=== PATIENT | female | born 1935 | race Caucasian/White ===

== ENCOUNTER → 2023-04-17 10:26 | Outpatient (REF) | payer MEDICARE, BC, SELFPAY ==
[2023-04-17 11:21] LABS: % Basophils 0.4 % (0-2); % Eosinophils 4.5 % (0-6); % Immature Granulocytes 0.3 % (0-0.5); % Lymphocytes 31.2 % (20.5-51.1); % Monocytes 7.5 % (1.7-9.3); % Neutrophils 56.1 % (42.2-75.2); Absolute Eosinophils 0.4 10^3/uL (0-0.7); Absolute Monocytes 0.7 10^3/uL (0.1-0.6); Absolute Neutrophils 5.4 10^3/uL (1.4-6.5); Hemoglobin 13.1 g/dL (12.0-16.0); Mean Corp Hgb Conc. 34.5 g/dL (33.0-37.0); Mean Corpuscular Hgb 29.6 pg (27.0-31.0); Mean Platelet Volume 10.6 fL (7.4-10.4); Nucleated Red Blood Cells % 0 %; Platelet Count 300 10^3/uL (130-400); Red Blood Cell Count 4.42 10^6/uL (4.20-5.40); Red Cell Dist. Width 13.6 % (11.5-14.5); White Blood Cell Count 9.5 10^3/uL (4.8-10.8)
[2023-04-17 12:42] LABS: Iron 82 ug/dl (37-170); LDH 237 U/L (120-246)
[2023-04-17 12:52] LABS: Percent Saturation 24 % (20-50); Total Iron Binding Capacity 330 ug/dl (265-497)
[2023-04-17 13:25] LABS: Ferritin 64.1 ng/ml (11.1-264.0)
== END ==
LOC: REG 10:26
PROVIDERS: ATTENDING PHYSICIAN Internal Medicine Hematology & Oncology; FAMILY PHYSICIAN Family Medicine
DX: C85.80 Other specified types of non-Hodgkin lymphoma, unspecified site (principal)
CPT/HCPCS: 36415; 82728; 83540; 83550; 83615; 85025

== ENCOUNTER 2024-02-08 15:39 | Inpatient (IN) | payer MEDICARE, BC, SELFPAY ==
[2024-02-08 12:03] VITALS: BP 118/84
[2024-02-08 12:22] LABS: % Basophils 0.2 % (0-2); % Eosinophils 0.1 % (0-6); % Immature Granulocytes 0.4 % (0-0.5); % Lymphocytes 11.9 % (20.5-51.1); % Monocytes 6.7 % (1.7-9.3); % Neutrophils 80.7 % (42.2-75.2); Absolute Immature Granulocytes 0.1 10^3/uL (0-0.05); Absolute Monocytes 1.1 10^3/uL (0.1-0.6); Absolute Neutrophils 13.4 10^3/uL (1.4-6.5); Hematocrit 35.3 % (37.0-47.0); Mean Corpuscular Hgb 29.1 pg (27.0-31.0); Mean Corpuscular Volume 85.5 fL (81.0-99.0); Mean Platelet Volume 10.3 fL (7.4-10.4); Nucleated Red Blood Cells % 0 %; Platelet Count 415 10^3/uL (130-400); Red Blood Cell Count 4.13 10^6/uL (4.20-5.40); White Blood Cell Count 16.5 10^3/uL (4.8-10.8)
[2024-02-08 12:38] LABS: ALT (SGPT) 16 U/L (0-35); AST (SGOT) 23 U/L (14-36); Albumin 4.1 g/dl (3.5-5.0); Alkaline Phosphatase 97 U/L (38-126); Blood Urea Nitrogen 23 mg/dl (7-17); Calcium 9.7 mg/dl (8.4-10.2); Carbon Dioxide 26 mmol/L (22-30); Chloride 96 mmol/L (98-107); Glucose 134 mg/dl (70-99); Potassium 3.8 mmol/L (3.5-5.1); Sodium 137 mmol/L (135-145); Total Bilirubin 1.3 mg/dl (0.2-1.3); Total Protein 7.3 g/dl (6.3-8.2); eGFR > 60.00
--- NOTE | 2024-02-08 12:49 | EDRN ---
Mary Beth ORO currently at the pts bedside
--- NOTE | 2024-02-08 13:02 | ED.GENMED ---
History of Present Illness
<Jen House PA-C - Last Filed: 02/08/24 19:34>
General
Chief Complaint: Facial Problem
Source: patient
Exam Limitations: none
Time Seen by Provider: 02/08/24 12:34
Nursing documentation reviewed up to this point in time: agreed with
History of Present Illness
History of Present Illness:
88-year-old female with history hypertension, hyperlipidemia presenting to the emergency department for evaluation of left-sided facial swelling. Patient states symptoms started 2 days ago and have been gradually worsening. She does have an area
of tenderness on the left mandible although she also feels that her left cheek is somewhat tingly/numb. Patient states starting today she is having very mild difficulty with swallowing. Patient denies any known fevers. No chest pain, shortness of
breath, drooling.
Patient was seen by an urgent care dentist where they performed dental x-rays and did not see any evidence of tooth infection. However�they did start her on a course of metronidazole and recommend she be seen in the emergency department.
Of note�patient did have a tooth extraction and the middle of December complicated by dental abscess which was drained at the end of December.
Past History
<Jen House PA-C - Last Filed: 02/08/24 19:34>
Past History
ED Past Medical History: HTN and Other (bladder issues)
ED Past Surgical History: Orthopedic (Back surgeries, hip replacement)
Social History
Tobacco: Non-smoker
Personal:
Living: with family
Review of Systems
<LV Broderick Last Filed: 02/08/24 19:34>
Review of Systems
Allergies reviewed?: Yes
All Other Systems: ROS reviewed and negative except as documented in HPI and ROS
Phy Exam
<Jen House PA-C - Last Filed: 02/08/24 19:34>
Physical Exam
Physical Exam:
Vitals: Patient's vital signs are stable. Afebrile
General: Patient is well appearing, no acute distress. Nontoxic appearing
Skin: Erythema and swelling of left lower cheek/mandible with streaking extending into left submandibular space
Head: Normocephalic, atraumatic
Eyes: Sclera nonicteric. EOMs intact. No nystagmus.
Throat: Protecting airway. No trismus. No drooling. Trachea midline.
Neck: Normal ROM, no cervical spine tenderness, no meningismus.
Cardiac: Regular rate and rhythm, no murmurs.
Pulm: Normal respiratory effort, no wheezes, rales, rhonchi heard on exam.
Abdomen: No abdominal tenderness.
Extremities: No evidence of cyanosis or edema
Neuro: AAOx3. CN II-XII intact. No focal neurologic deficits.
Psychiatric: Normal affect.
Course
<Jen House PA-C - Last Filed: 02/08/24 19:34>
Orders/Labs/Results
Orders:
Orders
02/08/24 Breakfast
Cholesterol Lowering
At Your Request: Limited Participation
Cholesterol Lowering: Sodium, 2 Gram
IDDSI 6 - Small Bite/Soft
02/08/24 12:13
CMP [Comprehensive Metabolic Panel] Urgent
Complete Blood Count/With Diff Urgent
02/08/24 12:[address] w [address] [CT Facial Bones W/ Iv Contrast] Urgent
Comment:
Reason For Exam: Left jaw swelling
0.9% Sodium Chloride 1000 ml [Nss] 1,000 ml IV BOLUS
02/08/24 15:28
Ampicillin/Sulbactam 3 G [Unasyn] 3 gm 0.9% Sodium Chloride 100 ml [Nss] 100 ml IV NOW
02/08/24 15:29
Admit/Transfer Patient As Directed
Co-Sign Provider:
Level of Care: Inpatient admission
Assign to:: Medical/Surgical
Physician / Group: zina be
Diagnosis: abscess
Reason for Hospitalization: abscess
Expected length of stay greater than two midnights?: Yes
ELOS- Estimated Length of Stay in days: 3
I certify the patient meets the requirements for IP care: Yes
PRN Pain Medication Management As Directed
May give lesser potent ordered pain med per pt: Yes
preference::
Protocol:: Medication orders for pain may be administered in a
manner that supports deferring to patient preference
when the pt is:
- Requesting an ordered lesser potent pain medication.
Least to most potent pain medications are defined
as: acetaminophen < NSAID < tramadol < opioids
(morphine, oxycodone, hydromorphone).
- Requesting a lesser dose of the same medication IF
ORDERED.
- Requesting a less intrusive route of administration
if both routes are prescribed by the provider (PO <
IV).
02/08/24 15:30
Code Status As Directed
Resuscitation Status: Full Code
02/08/24 16:49
Acetaminophen [Tylenol] 650 mg PO Q4HPRN PRN
02/08/24 16:49
Activity As Directed
Activity Level: Out of Bed-Early Mobility
Intake/ Output As Directed
Frequency: Per unit guidelines
Venous Foot Pumps As Directed
Location: Bilateral feet
Vital Signs As Directed
Frequency: Per unit guidelines
DX Deep Vein Thrombosis Video Routine
02/08/24 20:00
Tolterodine Tartrate [Detrol] 1 mg PO BID
02/08/24 22:00
Ampicillin/Sulbactam 3 G [Unasyn] 3 gm 0.9% Sodium Chloride 100 ml [Nss] 100 ml IV Q6H
02/09/24 06:00
Complete Blood Count/No Diff IN AM
02/09/24 08:00
Amlodipine [Norvasc] 10 mg PO DAILY
Pantoprazole [Protonix] 40 mg PO DAILY
02/10/24 06:00
Complete Blood Count/No Diff IN AM
02/11/24 06:00
Complete Blood Count/No Diff IN AM
02/12/24 06:00
Complete Blood Count/No Diff IN AM
Abnormal Lab Results
02/08/24
12:13
WBC 16.5 H 10^3/uL
(4.8-10.8)
RBC 4.13 L 10^6/uL
(4.20-5.40)
Hct 35.3 L %
(37.0-47.0)
Plt Count 415 H 10^3/uL
(130-400)
Abs Immat Gran (auto) 0.1 H 10^3/uL
(0-0.05)
Absolute Neuts (auto) 13.4 H 10^3/uL
(1.4-6.5)
Absolute Monos (auto) 1.1 H 10^3/uL
(0.1-0.6)
Neutrophils % 80.7 H %
(42.2-75.2)
Lymphocytes % 11.9 L %
(20.5-51.1)
Chloride 96 L mmol/L
(98-107)
BUN 23 H mg/dl
(7-17)
Glucose 134 H mg/dl
(70-99)
02/08/24 12:13
02/08/24 12:13
Vital Signs
Initial and Last Documented VS:
Initial Vital Signs
Temp Pulse Resp BP Pulse Ox
99.0 F 108 18 118/84 95
02/08/24 12:03 02/08/24 12:03 02/08/24 12:03 02/08/24 12:03 02/08/24 12:03
Last Documented Vital Signs
Temp Pulse Resp BP Pulse Ox
97.7 F 110 18 154/85 95
02/08/24 17:20 02/08/24 17:20 02/08/24 17:20 02/08/24 17:20 02/08/24 17:20
<Myesha Benson MD - Last Filed: 02/08/24 13:04>
Orders/Labs/Results
Orders:
Orders
02/08/24 Breakfast
Cholesterol Lowering
At Your Request: Limited Participation
Cholesterol Lowering: Sodium, 2 Gram
IDDSI 6 - Small Bite/Soft
02/08/24 12:13
CMP [Comprehensive Metabolic Panel] Urgent
Complete Blood Count/With Diff Urgent
02/08/24 12:[address] w [address] [CT Facial Bones W/ Iv Contrast] Urgent
Comment:
Reason For Exam: Left jaw swelling
0.9% Sodium Chloride 1000 ml [Nss] 1,000 ml IV BOLUS
02/08/24 15:28
Ampicillin/Sulbactam 3 G [Unasyn] 3 gm 0.9% Sodium Chloride 100 ml [Nss] 100 ml IV NOW
02/08/24 15:29
Admit/Transfer Patient As Directed
Co-Sign Provider:
Level of Care: Inpatient admission
Assign to:: Medical/Surgical
Physician / Group: zina be
Diagnosis: abscess
Reason for Hospitalization: abscess
Expected length of stay greater than two midnights?: Yes
ELOS- Estimated Length of Stay in days: 3
I certify the patient meets the requirements for IP care: Yes
PRN Pain Medication Management As Directed
May give lesser potent ordered pain med per pt: Yes
preference::
Protocol:: Medication orders for pain may be administered in a
manner that supports deferring to patient preference
when the pt is:
- Requesting an ordered lesser potent pain medication.
Least to most potent pain medications are defined
as: acetaminophen < NSAID < tramadol < opioids
(morphine, oxycodone, hydromorphone).
- Requesting a lesser dose of the same medication IF
ORDERED.
- Requesting a less intrusive route of administration
if both routes are prescribed by the provider (PO <
IV).
02/08/24 15:30
Code Status As Directed
Resuscitation Status: Full Code
02/08/24 16:49
Acetaminophen [Tylenol] 650 mg PO Q4HPRN PRN
02/08/24 16:49
Activity As Directed
Activity Level: Out of Bed-Early Mobility
Intake/ Output As Directed
Frequency: Per unit guidelines
Venous Foot Pumps As Directed
Location: Bilateral feet
Vital Signs As Directed
Frequency: Per unit guidelines
DX Deep Vein Thrombosis Video Routine
02/08/24 20:00
Tolterodine Tartrate [Detrol] 1 mg PO BID
02/08/24 22:00
Ampicillin/Sulbactam 3 G [Unasyn] 3 gm 0.9% Sodium Chloride 100 ml [Nss] 100 ml IV Q6H
02/09/24 06:00
Complete Blood Count/No Diff IN AM
02/09/24 08:00
Amlodipine [Norvasc] 10 mg PO DAILY
Pantoprazole [Protonix] 40 mg PO DAILY
02/10/24 06:00
Complete Blood Count/No Diff IN AM
02/11/24 06:00
Complete Blood Count/No Diff IN AM
02/12/24 06:00
Complete Blood Count/No Diff IN AM
Abnormal Lab Results
02/08/24
12:13
WBC 16.5 H 10^3/uL
(4.8-10.8)
RBC 4.13 L 10^6/uL
(4.20-5.40)
Hct 35.3 L %
(37.0-47.0)
Plt Count 415 H 10^3/uL
(130-400)
Abs Immat Gran (auto) 0.1 H 10^3/uL
(0-0.05)
Absolute Neuts (auto) 13.4 H 10^3/uL
(1.4-6.5)
Absolute Monos (auto) 1.1 H 10^3/uL
(0.1-0.6)
Neutrophils % 80.7 H %
(42.2-75.2)
Lymphocytes % 11.9 L %
(20.5-51.1)
Chloride 96 L mmol/L
(98-107)
BUN 23 H mg/dl
(7-17)
Glucose 134 H mg/dl
(70-99)
02/08/24 12:13
02/08/24 12:13
Vital Signs
Initial and Last Documented VS:
Initial Vital Signs
Temp Pulse Resp BP Pulse Ox
99.0 F 108 18 118/84 95
02/08/24 12:03 02/08/24 12:03 02/08/24 12:03 02/08/24 12:03 02/08/24 12:03
Last Documented Vital Signs
Temp Pulse Resp BP Pulse Ox
97.7 F 110 18 154/85 95
02/08/24 17:20 02/08/24 17:20 02/08/24 17:20 02/08/24 17:20 02/08/24 17:20
<Jen House PA-C - Last Filed: 02/08/24 19:34>
MDM/Problems Addressed
Differential Diagnosis Includes:
Not limited to: deep space abscess, dental abscess, sialoadenitis, lymphadenopathy, parotid gland obstruction, parotitis, wendy angina, etc
MDM/Problems Addressed:
88-year-old female presenting with left mandibular erythema and swelling. Has been seen at dentist where they feel no evidence of infection. No fevers. Very mild dysphagia. Vital signs are stable. Exam as above. Patient overall well-appearing
although there is notable erythema and swelling to left mandibular region with streaking which is tender to touch. There is no trismus or drooling. Basic labs were initiated in triage significant for leukocytosis of 16.5 with left shift.
Chemistry without any clinically significant abnormalities. Concern for possible deep space infection of face. Will obtain CT facial bones with IV contrast. Disposition pending.
Chronic conditions affecting care:
N/A
Acute Exacerbation and/or Progression of Chronic Illness:
N/A
<Jen House PA-C - Last Filed: 02/08/24 19:34>
*Radiology
Radiology exam reviewed: radiology read reviewed
*Pulse Oximetry
Patient hypoxic: no
*EKG
Interpreted by ED Provider?: NA
*Bathhouse Attendant Interpretation
Rate: Bathhouse Attendant- N/A
*Critical Care Note
Total Time (30-74mins, 75-104mins- exclusive of procedures): Not Applicable
<Jen House PA-C - Last Filed: 02/08/24 19:34>
Patient Management
Discussion with other providers: Hospitalist and Cad Programmer (ENT )
Escalation/DeEscalation of care consider admission/obs:
Admit for IV abx
<Jen House PA-C - Last Filed: 02/08/24 19:34>
Update Note
Update Note:
Update: CT shows subperiosteal abscess along left mandibular ramus with associated stranding and swelling. Given associated leukocytosis and age�will admit patient for IV antibiotics. Unfortunately no OMFS provider on-call today. Patient started
on IV Unasyn in emergency department. Accepted to hospitalist service in stable condition. Plan for OMFS consult tomorrow if needed.
ED Attending Note
<Jen House PA-C - Last Filed: 02/08/24 19:34>
-
Portions of this chart may have been created with voice recognition software.� Occasional wrong word or��sound alike� substitutions may have occurred due to the inherent limitations of voice recognition software.
<Myesha Benson MD - Last Filed: 02/08/24 13:04>
ED Attending Note
Patient seen and examined by attending physician: Yes
I performed the substantive portion of visit, reviewed & personally made and approve the management plan that is documented in note by myself or DANIEL.: Yes
ED Attending Note:
Patient arrives with left mandibular erythema and swelling. Is tender to the touch. She has streaking redness under the angle of her mandible. She has no trismus or hoarseness. We are worried about deep space infection. Patient awaiting CT with
IV contrast.
Discharge Plan
Departure
Patient Disposition: Admit
Date of Disposition: 02/08/24
Time of Disposition: 15:04
Presentation/result/management discussed w/ accepting MD/DO: Hospitalist
Discharge Problem:
Subperiosteal abscess of jaw
Interventions
Interventions:
*Risk Screen - Suicide Last Done: 02/08/24 12:03
*General Assessment Last Done: 02/08/24 12:03
*Neglect/Abuse Screening Last Done: 02/08/24 13:20
ED- Fall Risk Assessment Last Done: 02/08/24 13:20
*ED COVID-19 Vaccine History Last Done: 02/08/24 12:03
*Nursing Disposition Last Done: 02/08/24 16:29
ED- Neurological Assessment Last Done: 02/08/24 13:20
ED-Skin Assessment Last Done: 02/08/24 13:20
Discharge Date and Time
Discharge Date/Time: 02/08/24 17:09
[2024-02-08 13:20] VITALS: BP 131/92; BMI 25.0
[2024-02-08] MEDS: NSS 1000 IV (13:20)
--- NOTE | 2024-02-08 15:12 | HPS.HSE ---
Family Physician
-
Family Physician: Aidan Miller
Chief Complaint
-
left facial swelling
History of Present Illness
88-year-old female with history hypertension, hyperlipidemia presenting to the emergency department for evaluation of left-sided facial swelling. patient had left sided tooth extraction on January 13 . couple days later she noticed swelling and
pain. she went to urgent care dentist, they took the stitches off and sent her home on amoxicillin. she was doing fine until couple days ago,when she noticed left facial swelling and numbness. she was evaluated at urgent care yesterday. they took x
ray which was fine. she was sent home on Flagyl. Patient states starting today she is having very mild difficulty with swallowing. Patient denies any known fevers. No chest pain, shortness of breath, drooling. denied abdominal pain,n,v,d. denied
dysuria or hematuria.
CT with impression of here is a 1.5 x 0.6 x 1.4 cm subperiosteal abscess along the left mandibular ramus with associated soft tissue stranding and swelling involving the left human resources associate and buccal spaces. There is mild left cervical lymphadenopathy
which is likely reactive.
Patient received a dose of Unasyn in ER admitting for further management.
Medical History
Past Medical History
Past Medical History: Reports Other
Additional Past Medical History:
Left shoulder fracture
Non-Hodgkin's
Hypertension
Bladder weakness
GERD
Past Surgical History: Reports Other
Additional Past Surgical History:
Bilateral cataract surgery
Cyst removed from breast
Cholecystectomy
Hysterectomy
Laminectomy
Partial hip replacement
Social History
Tobacco: Non-smoker
Alcohol: None
Drug: None
Personal: Partner
Employment: Not Employed
Family History
Family History: Not pertinent
Allergies / Home Medications
Allergies reflects when Allergies were last updated in [facility].
Home Medications with original date entered in [facility]
Allergy/Medication List:
Allergies
Allergy/AdvReac Type Severity Reaction Status Date / Time
belladonna alkaloids Allergy Unknown Verified 02/08/24 12:07
ofloxacin Allergy Unknown Verified 02/08/24 12:07
[From Floxin I.V. in D5W]
Quinolones Allergy Unknown Verified 02/08/24 12:07
Sulfa (Sulfonamide Allergy Unknown Verified 02/08/24 12:07
Antibiotics)
sulfamethoxazole Allergy Unknown Verified 02/08/24 12:07
trimethoprim Allergy Unknown Verified 02/08/24 12:07
Home Medications
acetaminophen 500 mg tablet (Tylenol Extra Strength) 500 mg PO Q6HPRN PRN mild pain 02/08/24
amlodipine 10 mg tablet 10 mg PO DAILY 02/08/24
cholecalciferol (vitamin D3) 25 mcg (1,000 unit) tablet (Vitamin D3) 25 mcg PO DAILY 02/08/24
metronidazole 500 mg tablet 500 mg PO BID 02/08/24
naproxen sodium 220 mg tablet (Aleve) 220 mg PO DAILY 02/08/24
omeprazole 20 mg capsule,delayed release 20 mg PO DAILY 02/08/24
tolterodine 1 mg tablet 1 mg PO BID 02/08/24
Review of Systems
-
Constitutional: Reports No Symptoms
EENT: Reports Other (Left facial swelling)
Respiratory: Reports No Symptoms
Cardiac: Reports No Symptoms
Abdomen/GI: Reports No Symptoms
: Reports No Symptoms
Musculoskeletal: Reports No Symptoms
Skin: Reports No Symptoms
Neurological: Reports No Symptoms
Endocrine: Reports No Symptoms
Hematologic/Lymphatic: Reports No Symptoms
Psych: Reports No Symptoms
Physical Exam
Vital Signs
Vital Signs
Temp Pulse Resp BP Pulse Ox
98.5 F 86 20 131/92 99
02/08/24 13:20 02/08/24 13:20 02/08/24 13:20 02/08/24 13:20 02/08/24 13:20
Physical Exam
General: Well Developed, Well Nourished and No Apparent Distress
HEENT: NormoCephalic, Moist mucous membranes and Atraumatic
Respiratory: Clear
Cardiac: S1/S2 and Regular Rhythm; No Murmur or Rub
GI: Soft, Non Tender, Non Distended and Normal Bowel Sounds; No Organomegaly
Rectal: Deferred by Provider
Musculoskeletal: No Clubbing, No Cyanosis and Other (Left facial edema)
Skin: No Rash
Neuro: AO x 3 and Nonfocal/grossly intact
Psych: Calm
Laboratory Results
-
02/08/24 12:13
02/08/24 12:13
Laboratory Results
Total Bilirubin 1.3 mg/dl (0.2-1.3) 02/08/24 12:13
AST 23 U/L (14-36) 02/08/24 12:13
ALT 16 U/L (0-35) 02/08/24 12:13
Alkaline Phosphatase 97 U/L (38-126) 02/08/24 12:13
Data Reviewed
-
CT Scan: Report Reviewed by me
Lab Data: Labs Reviewed by me
Impression/Plan
-
# Subperiosteal abscess of left mandibular ramus
-WBC 16.5, temp 99.0
-CT with impression of There is a 1.5 x 0.6 x 1.4 cm subperiosteal abscess along the left mandibular ramus with associated soft tissue stranding and swelling involving the left human resources associate and buccal spaces. There is mild left cervical
lymphadenopathy which is likely reactive.
-IV Unasyn continued
-No OMFS on duty today, consider OMFS consult tomorrow.
-tylenol prn for pain
# Essential hypertension
-Norvasc continued with hold parameters
# GERD
-PPI continued
# DVT prophylaxis
-SCD
# CODE STATUS
-Full code
[2024-02-08] MEDS: UNASYN IV ×2 (15:37→22:01)
--- NOTE | 2024-02-08 16:10 | W.PN.UPDATE ---
Update Note
Progress Note Update
This note serves as an addendum to the H&P by marketing research analyst DANIEL Steph HOWARD
HPI
88F HX HTN, HLD seen at ER
- evaluation of left-sided facial swelling
- s/p left sided tooth extraction on January 13 , couple days later she noticed swelling and pain
- sen by urgent care dentist, they took the stitches off and sent her home on amoxicillin.
- she was doing fine until couple days ago,when she noticed left facial swelling and numbness.
- Again she was evaluated at urgent care yesterday. they took x ray which was fine. she was sent home on Flagyl. - currently mild difficulty with swallowing.
ROS
denies fevers.
PE
No toxic
Conversant
Lt face significant mandibular swelling
Facial bone CT :
- 1.5 x 0.6 x 1.4 cm subperiosteal abscess along the left mandibular ramus with associated soft tissue stranding and swelling involving the left grants and contracts assistant and buccal spaces.
- mild left cervical lymphadenopathy which is likely reactive.
ASSESSMENT & PLAN
Subperiosteal abscess of left mandibular ramus
- WBC 16.5, temp 99.0
- facial CT as above
- agree with IV Unasyn
- No OMFS on duty today, consider OMFS consult tomorrow.
- Tylenol prn for pain
Essential HTN
- Norvasc continued with hold parameters
DVT Px : SCD
Full code
IP MS
[2024-02-08 16:16] VITALS: BP 146/85
--- NOTE | 2024-02-08 16:20 | EDRN ---
this RN called the receiving unit and notified them that paper report was going to be tubed up
[2024-02-08 17:20] VITALS: BP 154/85
[2024-02-08 17:21] VITALS: BMI 15.1
--- NOTE | 2024-02-08 19:03 | CON.MD ---
Consultation - Medical
-
Chief complaint: Left maxillary dental infection
History of present illness: This patient is an 88-year-old woman who underwent dental extraction about 4 weeks ago in anticipation of placing a bridge. She initially experienced infection and underwent removal of sutures and treated with
antibiotics. She improved but noticed recurrence over the last few days. She presents with left facial swelling over the cheek and the mandible. She states that her left face is numb. She had a CT scan which showed swelling in the left cheek
tissues lateral to the mandible in the maxilla.
Past medical history:
Allergies: Belladonna alkaloids, ofloxacin, quinolones, sulfa medications, sulfamethoxazole, trimethoprim,
Home medications: Acetaminophen 500 mg p.o. every 6 hours as needed pain, amlodipine 10 mg p.o. daily, cholecalciferol 25 mcg p.o. daily, metronidazole 500 mg p.o. twice daily, naproxen sodium 220 mg p.o. daily, omeprazole 20 mg p.o. daily,
tolterodine 1 mg p.o. twice daily
Family history: Asked and is noncontributory
Hospitalization: The patient is currently hospitalized for a dental infection
Review of systems: Positive for left facial swelling and tenderness, left facial numbness, negative for chest pain, negative for abdominal pain, negative for respiratory distress,
Physical examination:
Head: Atraumatic and normocephalic with the exception of left facial swelling involving the cheek and the mandible. She has significant tenderness over the mandible but not over the upper cheek or the maxilla.
Eyes: Normal to examination
Nose: Clear
Oral cavity/oropharynx: The patient has left gingival and lateral mandibular swelling consistent with a dental infection that is spread through the bone to the subperiosteal tissue. No swelling noted in the floor of mouth inside the mandible
Neck: Supple without adenopathy:
Ears: Normal to examination
Cranial nerves: 2 through 12 are intact
Salivary glands: Normal to examination
Thyroid gland: Normal
Impression/plan: The patient has a dental infection with involvement of the tissue subperiosteally on the left side of the mandible. The patient is currently on Unasyn which is an appropriate antibiotic. The patient will need an oral
surgery/dental consultation and may possibly need a drainage procedure. I will see the patient back as needed.
[2024-02-08] MEDS: DETROL 1 MG PO (19:59)
[2024-02-08] MEDS: TYLENOL 650 MG PO (22:17)
[2024-02-08 23:55] VITALS: BP 113/53
[2024-02-09] VITALS (9 sets, daily range): BP systolic 110–152; BP diastolic 52–95
[2024-02-09] MEDS: UNASYN IV ×4 (04:00→21:53)
[2024-02-09 08:32] LABS: Hematocrit 34.1 % (37.0-47.0); Hemoglobin 11.6 g/dL (12.0-16.0); Mean Corpuscular Hgb 29.6 pg (27.0-31.0); Mean Platelet Volume 10.7 fL (7.4-10.4); Platelet Count 379 10^3/uL (130-400); Red Blood Cell Count 3.92 10^6/uL (4.20-5.40); Red Cell Dist. Width 14.3 % (11.5-14.5); White Blood Cell Count 11.7 10^3/uL (4.8-10.8)
[2024-02-09] MEDS: NORVASC 10 MG PO (08:52)
[2024-02-09] MEDS: DETROL 1 MG PO (08:52)
[2024-02-09] MEDS: PROTONIX 40 MG PO (08:52)
--- NOTE | 2024-02-09 09:45 | W.PN.HOSP.TC ---
Addendum entered and electronically signed by Yolanda Hand MD, Resident 02/09/24 15:59:
Response To CDI
Sepsis POA due to subperiosteal abscess of left mandibular ramus
Original Note:
Today's Communication/Plan
-
Consult oral surgery
Continue Unasyn
Monitor CBC, BMP, temps
Assessment / Plan
Assessment / Plan
Patient is an 88-year-old woman who underwent dental extraction on 01/13. She was treated with Flagyl for a possible infection following this procedure. However, she developed left-sided mandibular swelling and numbness.
Initial labs in ED showed leukocytosis. Hemodynamics were stable except for mild tachycardia. No fevers.
CT Facial Bones W/ Iv Contrast (02/07):
There is a 1.5 x 0.6 x 1.4 cm subperiosteal abscess along the left mandibular ramus with associated soft tissue stranding and swelling involving the left hand rigger and buccal spaces. There is mild left cervical lymphadenopathy which is likely
reactive.
Chronic conditions prior to admission
Non-Hodgkin's lymphoma
Essential hypertension
Pelvic floor muscle weakness
GERD
Bilateral cataract surgery
Cyst removed from breast
Cholecystectomy
Hysterectomy
Laminectomy
Partial hip replacement
Assessment/plan:
# Subperiosteal abscess of left mandibular ramus
- Continue Unasyn (day 2)
- Otology consulted-The patient will need an oral surgery/dental consultation and may possibly need a drainage procedure.
- Continue Tylenol as needed for pain
- Leukocytosis improving; continue monitoring CBC, temps
# Pelvic floor muscle weakness
- Continue tolterodine
# Essential hypertension
-Continue amlodipine
# GERD
-Continue pantoprazole
# DVT prophylaxis
- Lovenox 40
Anticipated Discharge: 24 - 48 hours
Subjective/Interval History
-
Date of Service: February 09, 2024
Patient does not offer any complaints. Can eat solids and liquids without any difficulties however does mention a decreased appetite. No fever or chills.
Objective Data
-
Labs:
Laboratory Results
02/09/24
07:41
WBC 11.7 H
Hgb 11.6 L
Hct 34.1 L
Plt Count 379
Vital Signs:
Vital Signs
Temp Pulse Resp BP Pulse Ox
98.4 F 100 18 148/84 95
02/09/24 07:26 02/09/24 08:52 02/09/24 07:26 02/09/24 08:52 02/09/24 07:26
I&O
02/08/24 02/09/24 02/10/24
06:59 06:59 06:59
Intake Total 240 / 240
Balance 240 / 240
Review of Systems
-
History Source: Patient
All other systems: Reviewed and negative
Physical Exam
-
General: Well Developed, No Apparent Distress and Comfortable
HEENT: Normocephalic, Moist Mucous Membranes, Anicteric and Other (Left-sided mandibular swelling, not warm or tender to touch, slight erythema )
Respiratory: Clear to Auscultation
Cardiac: Regular Rhythm and S1/S2
GI: Soft, Nontender and Nondistended
Genito-urinary: No Costovertebral Tender
Musculoskeletal: No Clubbing, No Cyanosis and No Edema
Skin: Warm and Dry
Neuro: Awake, Alert, Oriented and AO x 3
--- NOTE | 2024-02-09 12:49 | CON.ORS ---
Consultation - Oral Surgery
Subjective
88 year old female with past medical history of Non-Hodgkin's lymphoma, HTN, hyperlipidemia, bladder weakness, GERD consulted for left facial edema. Patient reports she had tooth #18 extracted by [facility] on 01/14/24 and was doing well but
developed left facial swelling a couple weeks ago. We to urgent care who took x-rays, removed her sutures and did not find anything wrong. She was put on antibiotics at that time which she completed. She was doing well until a couple days she
developed left facial swelling again and noticed new onset of entire left facial numbness or hypoesthesia. She went to urgent care again yesterday and was put on Flagyl. She started to notice some difficulty swallowing but no nausea, vomiting, fever
or chills. No dyspnea, dysphagia, orthopnea. She is on Unasyn right now IV and was able to tolerate PO breakfast this morning at around 9am. She denies tooth pain. She had a shoulder and hip replacement about 10 years ago, does not require
antibiotics prior to dental work anymore. She reports the numbness of her face is the entire left half of her face almost like a stroke. She reports it is not completely numb but more like decreased sensation that goes along the entire left
forehead, cheek and chin. She denies any drooping of her face. WBC was 16.5 yesterday and 11.5 today.
Past Medical History
Past Medical History: GERD, HTN, Hypercholesterolemia and Other (Non-Hodgkin's lymphoma, bladder weakness)
Past Surgical History: Other (cataract surgery, breast cyst removal, hysterectomy, laminectomy, shoulder replacement, hip replacement)
Family History: Not Pertinent
Alcohol: None
Drug: None
Tobacco: Non-smoker
Medications / Allergies
Allergies
Allergy/AdvReac Type Severity Reaction Status Date / Time
belladonna alkaloids Allergy Unknown Verified 02/08/24 12:07
ofloxacin Allergy Unknown Verified 02/08/24 12:07
[From Floxin I.V. in D5W]
Quinolones Allergy Unknown Verified 02/08/24 12:07
Sulfa (Sulfonamide Allergy Unknown Verified 02/08/24 12:07
Antibiotics)
sulfamethoxazole Allergy Unknown Verified 02/08/24 12:07
trimethoprim Allergy Unknown Verified 02/08/24 12:07
Active Medications
Generic Name Dose Route Start Last Admin
Trade Name Freq PRN Reason Stop Dose Admin
Acetaminophen 650 mg 02/08/24 16:49 02/08/24 22:17
Acetaminophen 325 Mg Tablet PO 03/07/24 16:48 650 mg
Q4HPRN PRN Administration
mild pain or temp > 100.4 F
Amlodipine Besylate 10 mg 02/09/24 08:00 02/09/24 08:52
Amlodipine 10 Mg Tablet PO 03/08/24 07:59 10 mg
DAILY RIMA Administration
Heparin Sodium 5,000 units 02/09/24 16:00
Heparin 5,000 Units/Ml 1 Ml Vial SC 03/08/24 15:59
Q8 RIMA
Ampicillin Sodium/Sulbactam 120 mls @ 240 mls/hr 02/08/24 22:00 02/09/24 11:07
Sodium 3 gm/ Sodium Chloride IV 120 mls
Q6H RIMA Administration
Pantoprazole Sodium 40 mg 02/09/24 08:00 02/09/24 08:52
Pantoprazole 40 Mg Delayed Release Tablet PO 03/08/24 07:59 40 mg
DAILY RIMA Administration
Sodium Chloride 0 flush 02/08/24 17:00
Sodium Chloride 0.9% (Flush) Syringe IV 03/07/24 16:59
PER PROTOCOL RIMA
Tolterodine Tartrate 1 mg 02/08/24 20:00 02/09/24 08:52
Tolterodine Tartrate 1 Mg Tablet PO 03/07/24 19:59 1 mg
BID RIMA Administration
Review of Systems
Constitutional: Reports No Symptoms
Eyes: Reports No Symptoms; Denies Blurry Vision or Double Vision
ENT: Reports Other (Left facial edema with tenderness to palpation and entire left half of facial hypoesthesia); Denies Tooth Pain
Cardiovascular: Reports No Symptoms
Respiratory: Reports No Symptoms
Gastrointestinal: Reports No Symptoms
Vital Signs
Temp Pulse Resp BP Pulse Ox
36.9 C 100 18 148/84 98
02/09/24 07:26 02/09/24 08:52 02/09/24 07:26 02/09/24 08:52 02/09/24 08:40
Physical Exam
General: Awake, Alert, Oriented x 3 and Not in Acute Distress
Extra-oral Exam: Edema, Tenderness to Palpation, Temporomandibular Joint Functions Smoothly & Evenly, Signs of Acute Infection and Other (Left buccal/facial edema with tenderness to palpation with slight induration of area but without erythema. No
fluctuance, inferior border of left mandible is palpable. Sensation Left V1,V2,V3 is 5/10 sensation on brush,pressure,pin prick sensation, Right V1,V2,V3 10/10 sensation. ); Negative Erythema, Clicking, Popping or Crepitus
Intra-oral Exam: Edema, Erythema, Signs of Acute Infection, Induration, Floor of Mouth Soft Without Elevation and Other (Erupted tooth #17 with left posterior buccal mandibular edema with erythema, tenderness to palpation, induration and no
fluctuance. Extraction site #18 shows edema, erythema and tenderness. No purulent discharge. No left lingual mandibular edema or discharge, FOM soft without elevation,uvula midline); Negative Purulent Discharge, Gingival Abscesses or Fistulas or
Fluctuance
Imaging Results
Panoramic x-ray taken 02/09/24 shows
There is a single left mandibular molar present, which has superior metallic filling. There is subtle lucency surrounding the root of this left mandibular molar, raising concern for periodontal infection. There is no rounded area of lucency separate
from the root of the left mandibular molar, with no findings to suggest a separate mandibular abscess. No other lucency seen within the body or right side of the mandible.
CT Facial Bones with IV contrast taken 02/08/24 shows
There is extensive soft tissue swelling stranding along the left maxillary/mandibular soft tissues involving the boarding house manager and buccal spaces. There is a 1.5 x 0.6 x 1.4 cm hypodense collection along the mandibular ramus (series 201 image 21 and
series 202 image 26). The left masseter appears enlarged and hypodense.
There is mild left-sided cervical adenopathy, likely reactive in nature.
No acute fracture involving the orbits or visualized skull base. Globes are spherical without proptosis. Prior bilateral lens replacement. There is no retro-orbital hematoma. Intraocular muscles and lacrimal glands intact and symmetric bilaterally.
No discrete nasal bone fracture.
Paranasal sinuses are predominantly clear.
There is mild intracranial atrophy.
No suspicious osseous lesions. There is trace anterolisthesis of C4 on C5 with trace retrolisthesis of C5 on C6. There is multilevel mild/moderate degenerative changes within the visualized upper/mid cervical spine. Atherosclerotic calcifications of
the bilateral carotid arteries.
IMPRESSION:
There is a 1.5 x 0.6 x 1.4 cm subperiosteal abscess along the left mandibular ramus with associated soft tissue stranding and swelling involving the left boarding house manager and buccal spaces.
There is mild left cervical lymphadenopathy which is likely reactive.
CT Results
Panoramic x-ray taken 02/09/24 shows
There is a single left mandibular molar present, which has superior metallic filling. There is subtle lucency surrounding the root of this left mandibular molar, raising concern for periodontal infection. There is no rounded area of lucency separate
from the root of the left mandibular molar, with no findings to suggest a separate mandibular abscess. No other lucency seen within the body or right side of the mandible.
CT Facial Bones with IV contrast taken 02/08/24 shows
There is extensive soft tissue swelling stranding along the left maxillary/mandibular soft tissues involving the boarding house manager and buccal spaces. There is a 1.5 x 0.6 x 1.4 cm hypodense collection along the mandibular ramus (series 201 image 21 and
series 202 image 26). The left masseter appears enlarged and hypodense.
There is mild left-sided cervical adenopathy, likely reactive in nature.
No acute fracture involving the orbits or visualized skull base. Globes are spherical without proptosis. Prior bilateral lens replacement. There is no retro-orbital hematoma. Intraocular muscles and lacrimal glands intact and symmetric bilaterally.
No discrete nasal bone fracture.
Paranasal sinuses are predominantly clear.
There is mild intracranial atrophy.
No suspicious osseous lesions. There is trace anterolisthesis of C4 on C5 with trace retrolisthesis of C5 on C6. There is multilevel mild/moderate degenerative changes within the visualized upper/mid cervical spine. Atherosclerotic calcifications of
the bilateral carotid arteries.
IMPRESSION:
There is a 1.5 x 0.6 x 1.4 cm subperiosteal abscess along the left mandibular ramus with associated soft tissue stranding and swelling involving the left boarding house manager and buccal spaces.
There is mild left cervical lymphadenopathy which is likely reactive.
Assessment / Plan
88 year old female with past medical history of Non-Hodgkin's lymphoma, HTN, hyperlipidemia, bladder weakness, GERD consulted for left facial edema status post extraction of tooth #18 about 1 month ago with several rounds of facial swelling due to
left buccal/boarding house manager space abscess likely caused from tooth #17 and possible underlying post-operative infection from prior extraction #18 and new onset of left facial hypoesthesia that includes the V1,V2 and V3 branch of the left trigeminal nerve
without any motor issues of the left face. Based on physical and radiographic examination, I have recommended extraction of tooth #17 with incision and drainage of left mandibular buccal/boarding house manager space abscess which is likely causing the patient's
current infection given the periapical radiolucency around the roots of tooth #17 and possible underlying post-operative infection at site #18 which was extracted by an outside dentist. The trigeminal nerve hypoesthesia of the left face is of
unknown origin, however, given the left facial swelling, hypoesthesia of the left V3 nerve can be related to and caused by the swelling of the infection but it is unclear the cause or source of the hypoesthesia of the V1 and V2 branch of the
trigeminal nerve as this is likely unrelated to the mandibular infection. I discussed with patient this which she understands and we discussed that it is possible the hypoesthesia or numbness may or may not improve or resolve with extraction of
tooth #17 and drainage of the left buccal/boarding house manager space abscess and the numbness could also get worse. She understands this risk and accepts this risk and wants to move forward. We have discussed all risks, benefits, complications and
alternatives including but not limited to bleeding, pain, infection, swelling, oroantral communication, temporary or permanent damage to inferior alveolar nerve resulting in paresthesia, hypoesthesia, anesthesia, dysesthesia, or loss of taste,
fracture of jaw, damage to adjacent teeth or tissues, dislodgement of adjacent crowns or fillings etc. Patient is aware and understands all risks and complications.
1. Patient to be made NPO immediately
2. Plan for extraction of tooth #17 and incision and drainage of left buccal/boarding house manager space abscess in the OR today
3. Continue IV antibiotics per ID recommendations
Data Reviewed
Diagnostic Imaging: Image personally visualized and interpreted, Report Reviewed by me and Discussed with Patient
CT Scan: Image personally visualized and interpreted, Report Reviewed by me and Discussed with Patient
Labs: Labs Reviewed by me
--- NOTE | 2024-02-09 13:12 | W.PN.UPDATE ---
Addendum entered and electronically signed by Fabio Cobb MD 02/09/24 15:24:
Sepsis, POA, due to left subperiosteal abscess along the left mandibular ramus
Original Note:
Update Note
Progress Note Update
I saw and evaluated the patient. I reviewed the resident�s note and agree with findings and plan as documented in the resident�s note.
No new complaints.
Gen: NAD, Awake and alert
Eyes: EOMI, PERRLA, no scleral icterus.
ENMT: Induration and tenderness in the soft tissue over the angle of the mandible
Neck: supple.
CV: RRR, +S1/S2, no m/r/g.
Resp: CTAB, no rales, wheezes, or rhonchi.
Skin: No rashes.
Neuro: CN 2-12 intact, non-focal.
Psych: Normal mood and affect.
CT facial bones: There is a 1.5 x 0.6 x 1.4 cm subperiosteal abscess along the left mandibular ramus with associated soft tissue stranding and swelling involving the left dog behaviorist and buccal spaces. There is mild left cervical lymphadenopathy
which is likely reactive.
Orthopantogram: Single left mandibular molar is present. Subtle lucency surrounding the root of this left mandibular molar, raising concern for periodontal infection.
L mandibular abscess:
-case discussed at length with Dr. Chicas of [facility]. Pt now made NPO. Will go to OR for drainage of abscess at 1700.
-cont Unasyn
-leukocytosis improving
-ID to see
Essential HTN:
-cont Norvasc
--- NOTE | 2024-02-09 15:14 | PN.CDI ---
CDI
- -
CDI:
Physician Documentation Request
Admit Date: 02/08/24 15:39
Dear Doctor Peace,
Please review the following and provide your response in the progress notes.
Clinical Indicators:
Pt admitted with Subperiosteal abscess of left mandibular ramus
Selected Entries
02/08/24
12:03 02/08/24
17:20 02/09/24
07:26
Pulse 108 110 107
Laboratory Tests
02/08/24 02/09/24
12:13 07:41
WBC 16.5 H 11.7 H
Please clarify which of the following most accurately describes the status of the patient's infection:
Sepsis
- Systemic manifestations of infection, with 2 or more SIRS criteria which include:
- Fever >100.4 degrees F or hypothermia < 96.8 degrees F
- Leukocytosis - WBC > 12,000 or leukopenia - WBC < 4,000 or > 10% bands
- Tachycardia > 90 beats per minute
- Tachypnea - RR > 20 breaths per minute or PaCO2 , 32mmHg
Left mandibular abscess infection only
Other
Use of terms such as suspected, likely, concern for, or probable (associated with a specific diagnosis that is being evaluated, monitored, or treated as if it exists) are acceptable and can be coded in the inpatient setting, when documented at the
time of discharge.
Thank you,
May Oh RN, BSN
CDI Specialist
Available via [place] [employer]
Please use your independent medical judgment in providing your response.
--- NOTE | 2024-02-09 16:09 | CON.ID ---
Consultation
-
Date/Time Consultation Requested: 02/09/2024 1133
Date/Time Consultation Performed: 02/09/2024 1530
Requesting Provider: Dr. Cobb
Performing Provider: Dr. Morrison
Reason for Consultation: Left odontologic (mandibular) infection
Chief Complaint / Past History
History of Present Illness
Alexia Welch is an 88-year-old female being evaluated the request of Dr. Cobb in regards to a left mandibular infection. History is obtained from chart review, along with patient interview.
The patient recently underwent a tooth extraction on 01/13. She reports that she did well immediately after, but approximately 2 days afterwards she developed a 'awful taste' in the mouth. Because it was a weekend she went to a dental critical
care facility where the stitches were removed, the area was flushed, and she was given a prescription for amoxicillin. She did well until late last week when she began to develop some lower jaw swelling, along with some numbness in the area. 2
days ago she was again seen at the dental urgent care center, and advised to watch, but when the swelling persisted, and pain increased, she came to the emergency room for further evaluation.
Here, she was found to have a leukocytosis. Imaging has revealed a 1.5 x 1.4 cm subperiosteal abscess along the left mandibular ramus. [facility] has been consulted, and will be taking the patient to the OR for tooth extraction and I&D later today.
Patient denies significant fevers or chills. She notes ongoing pain in the area. She denies any other complaints at this time.
Past History
Additional Past Medical History:
HTN
'Bladder issues'
Additional Past Surgical History:
Back surgery
Hip replacement
Allergy History:
belladonna alkaloids Allergy (Verified 02/08/24 12:07)
Unknown
ofloxacin [From Floxin I.V. in D5W] Allergy (Verified 02/08/24 12:07)
Unknown
Quinolones Allergy (Verified 02/08/24 12:07)
Unknown
Sulfa (Sulfonamide Antibiotics) Allergy (Verified 02/08/24 12:07)
Unknown
sulfamethoxazole Allergy (Verified 02/08/24 12:07)
Unknown
trimethoprim Allergy (Verified 02/08/24 12:07)
Unknown
Medications Reviewed: Yes
Current Antibiotics:
Unasyn 3 g IV every 6 hours
Social History
Tobacco: Non-Smoker
Alcohol: None
Drug: None
Personal:
Living: With Family
Employment: Retired
Family History
Family History: Not Pertinent
Review of Systems
Vital Signs
Temp Pulse Resp BP Pulse Ox
97.9 F 102 18 152/74 94
02/09/24 15:04 02/09/24 15:04 02/09/24 15:04 02/09/24 15:04 02/09/24 15:04
Physical Exam
Physical Exam
Constitutional: No Acute Distress, Comfortable and Non-toxic
Head: Other (Left mandibular swelling, tenderness and erythema noted. No active drainage or wound present. No significant trismus.)
Eyes: Pupils Equal, Pupils Round, No Conjunctival Hemorrhage and Sclera Anicteric
Cardiovascular: S1/S2; Negative S3/S4
Pulmonary: Clear; Negative Wheezes, Rales or Rhonchi
Gastrointestinal: Soft, Non Tender, Non Distended and Normal Bowel Sounds
Neurological: Awake and Alert
Psychological: Calm
Lab / Diagnostic Study Results
02/09/24 07:41
02/08/24 12:13
Abs Immat Gran (auto) 0.1 10^3/uL (0-0.05) H 02/08/24 12:13
Absolute Neuts (auto) 13.4 10^3/uL (1.4-6.5) H 02/08/24 12:13
Absolute Lymphs (auto) 2.0 10^3/uL (1.2-3.4) 02/08/24 12:13
Absolute Monos (auto) 1.1 10^3/uL (0.1-0.6) H 02/08/24 12:13
Absolute Basos (auto) 0.0 10^3/uL (0-0.2) 02/08/24 12:13
Immature Gran % 0.4 % (0-0.5) 02/08/24 12:13
Neutrophils % 80.7 % (42.2-75.2) H 02/08/24 12:13
Lymphocytes % 11.9 % (20.5-51.1) L 02/08/24 12:13
Monocytes % 6.7 % (1.7-9.3) 02/08/24 12:13
Eosinophils % 0.1 % (0-6) 02/08/24 12:13
Basophils % 0.2 % (0-2) 02/08/24 12:13
Microbiology Results
Imaging:
CT facial bones with IV contrast: There is extensive soft tissue swelling and stranding along the left maxillary/mandibular soft tissue involving the explosive specialist and buccal spaces. There is a 1.5 x 0.6 x 1.4 cm hypodense collection along the
mandibular ramus. The left masseter appears enlarged and hypodense. There is mild left-sided cervical adenopathy, likely reactive in nature. No acute fractures are noted. Please see full dictation for additional detail. Film personally viewed.
Assessment / Plan
Left mandibular subperiosteal abscess
Recent dental extraction
Leukocytosis
Hx HTN
Recommendations:
Continue with Unasyn as this should cover the most typical oral dinh.
Patient for I&D of the collection. Would check intraoperative cultures to guide further antimicrobial selection and potential de-escalation.
Monitor white count temperature curve.
[2024-02-09] MEDS: HEPARIN 5000 UNITS SC ×2 (16:29→23:08)
--- NOTE | 2024-02-09 19:41 | W.SUR.PREOP ---
Pre-Operative Surgical Note
-
I have examined this patient prior to the performance of the scheduled procedure.
The patient's condition is unchanged from the time of the current History and
Physical and the patient is able to undergo the scheduled procedure.
--- NOTE | 2024-02-09 20:56 | W.IMMPOSTOP ---
Surgical Immed Post Op Note
-
Primary Surgeon: Dr. Joanne Chicas DMD, MD
Assisting Surgeon: None
Pre-op Diagnosis: Abscess of mouth/left buccal space abscess
Post-op Diagnosis: Abscess of mouth/left buccal space abscess
Procedure Performed: Extraction of tooth #17, incision and drainage of left mandible/buccal space abscess with debridement and curettage
Anesthesia Type: Local anesthesia and Intravenous sedation
Specimen / Cultures: Aerobic and anaerobic cultures sent
Estimated Blood Loss: 5cc
Complications: None
Operative Findings: Purulent discharge from left mandible
[2024-02-09] MEDS: DETROL PO (21:18)
[2024-02-09] MEDS: TYLENOL 650 MG PO (21:56)
--- NOTE | 2024-02-09 22:28 | TRANSFER ---
received pt from PACU at 2130 in bed. pt with gauze packed in L cheek to help with bleeding. pt AOOx3, VSS. call singh within reach, pt is resting comfortably at present. will continue to monitor.
[2024-02-10 00:11] VITALS: BP 108/57
[2024-02-10 01:01] VITALS: BP 102/55
[2024-02-10] MEDS: UNASYN IV ×2 (03:15→10:16)
[2024-02-10 03:17] VITALS: BP 94/54
[2024-02-10 06:33] VITALS: BP 134/74
[2024-02-10 07:37] LABS: Glucose - Point of Care 149 mg/dl (70-99)
--- NOTE | 2024-02-10 08:08 | W.PN.UPDATE ---
Addendum entered and electronically signed by Fabio Cobb MD 02/10/24 11:42:
Medically stable for discharge on Augmentin for 10 further days as per infectious disease.
Total time spent on d/c = 31 min. This included today's physical exam, progress note, review of laboratory and diagnostic data, preparation of discharge documents and prescriptions, and discussions about the pt's hospital course and discharge plan
with the patient and other medical stenographer involved in the patient's care.
Original Note:
Update Note
Progress Note Update
I saw and evaluated the patient. I reviewed the resident�s note and agree with findings and plan as documented in the resident�s note.
No new complaints.
Gen: NAD, Awake and alert
Eyes: EOMI, PERRLA, no scleral icterus.
ENMT: Induration in the soft tissue over the angle of the mandible. Nontender to light palpation.
Neck: supple.
CV: RRR, +S1/S2, no m/r/g.
Resp: CTAB, no rales, wheezes, or rhonchi.
Skin: No rashes.
Neuro: CN 2-12 intact, non-focal.
Psych: Normal mood and affect.
CT facial bones: There is a 1.5 x 0.6 x 1.4 cm subperiosteal abscess along the left mandibular ramus with associated soft tissue stranding and swelling involving the left casing fluid tender and buccal spaces. There is mild left cervical lymphadenopathy
which is likely reactive.
Orthopantogram: Single left mandibular molar is present. Subtle lucency surrounding the root of this left mandibular molar, raising concern for periodontal infection.
L mandibular abscess:
-s/p Extraction of tooth #17, incision and drainage of left mandible/buccal space abscess with debridement and curettage on 02/09/[address] Chicas. Discussed with Dr. Chicas in person.
-cont Unasyn as per ID
-follow abscess Cx
-leukocytosis resolved
-c/s speech for completeness
Essential HTN:
-cont Norvasc
Dispo: possible d/c later today pending final abx recs by ID.
[2024-02-10 08:19] LABS: Hematocrit 34.2 % (37.0-47.0); Hemoglobin 11.5 g/dL (12.0-16.0); Mean Corp Hgb Conc. 33.6 g/dL (33.0-37.0); Mean Corpuscular Hgb 29.1 pg (27.0-31.0); Mean Corpuscular Volume 86.6 fL (81.0-99.0); Mean Platelet Volume 10.1 fL (7.4-10.4); Platelet Count 395 10^3/uL (130-400); Red Blood Cell Count 3.95 10^6/uL (4.20-5.40); White Blood Cell Count 5.2 10^3/uL (4.8-10.8)
--- NOTE | 2024-02-10 08:35 | W.PN.HOSP.TC ---
Today's Communication/Plan
-
D/C Unasyn and transition to Cefuroxime 500 BID
Medically stable for discharge today
Assessment / Plan
Assessment / Plan
Patient is an 88-year-old woman who underwent dental extraction on 01/13. She was treated with Flagyl for a possible infection following this procedure. However, she developed left-sided mandibular swelling and numbness.
Initial labs in ED showed leukocytosis. Hemodynamics were stable except for mild tachycardia. No fevers.
CT Facial Bones W/ Iv Contrast (02/07):
There is a 1.5 x 0.6 x 1.4 cm subperiosteal abscess along the left mandibular ramus with associated soft tissue stranding and swelling involving the left service unit operator and buccal spaces. There is mild left cervical lymphadenopathy which is likely
reactive.
Chronic conditions prior to admission
Non-Hodgkin's lymphoma
Essential hypertension
Pelvic floor muscle weakness
GERD
Bilateral cataract surgery
Cyst removed from breast
Cholecystectomy
Hysterectomy
Laminectomy
Partial hip replacement
Assessment/plan:
# Subperiosteal abscess of left mandibular ramus
- s/p extraction of tooth #17, incision and drainage of left mandible/buccal space abscess with debridement and curettage (post-op day1)
- Unasyn Q6h (day 3)- Can transition to Cefuroxim 500 BID today
- Otology consulted-The patient will need an oral surgery/dental consultation and may possibly need a drainage procedure.
- Continue Tylenol as needed for pain
- Leukocytosis resolved
# Pelvic floor muscle weakness
- Continue tolterodine
# Essential hypertension
- Continue amlodipine
# GERD
- Continue pantoprazole
# DVT prophylaxis
- Heparin 5000 SC
Anticipated Discharge: Within 24 hours
Subjective/Interval History
-
Date of Service: February 10, 2024
Patient does not offer any complaints except for persistent numbness of left side of face. However, mentions left jaw pain has resolved.
Objective Data
-
Labs:
Laboratory Results
02/10/24
08:11
WBC 5.2
Hgb 11.5 L
Hct 34.2 L
Plt Count 395
Sodium Pending
Potassium Pending
Chloride Pending
Carbon Dioxide Pending
BUN Pending
Creatinine Pending
Glucose Pending
Calcium Pending
Vital Signs:
Vital Signs
Temp Pulse Resp BP Pulse Ox
97.8 F 93 20 134/74 95
02/10/24 06:33 02/10/24 06:33 02/10/24 06:33 02/10/24 06:33 02/10/24 06:33
I&O
02/09/24 02/10/24 02/11/24
06:59 06:59 06:59
Intake Total 240 / 240 440 / 440
Balance 240 / 240 440 / 440
Review of Systems
-
History Source: Patient
All other systems: Reviewed and negative
EENT: Reports Other (left-sided numbness of jaw and lower cheek, without pain)
Physical Exam
-
General: Well Developed, No Apparent Distress and Comfortable
HEENT: Normocephalic, Moist Mucous Membranes, Anicteric and Other (hypoesthesia of left jaw and left lower cheek compared to the right side, no facial paralysis, speech normal, swallowing normal, hearing intact)
Respiratory: Clear to Auscultation
Cardiac: Regular Rhythm and S1/S2
GI: Soft, Nontender, Nondistended and Normal Bowel Sounds
Musculoskeletal: No Clubbing, No Cyanosis and No Edema
Skin: Warm and Dry
Neuro: Awake, Alert, Oriented and AO x 3
Hematologic / Lymphatic: No Lymphadenopathy
Psych: Calm
--- NOTE | 2024-02-10 08:40 | W.PN.OMFS ---
Today's Communication
-
Spoke with patient regarding follow-up information.
Assessment / Plan
-
88 year old female post op day #1 status post extraction of tooth #17 and incision and drainage of left mandible/buccal space abscess with debridement and curettage, healing well according to normal post-operative course. I discussed with patient
that her edema and tenderness is normal and will take time to resolve completely could be 1-2 months which she understands. We discussed that she should continue to improve each day with the pain, swelling and discomfort but there is always a change
for re-infection or re-collection and she should always call my office with any concerns or questions. She understands. We discussed that her white blood cell count improved significantly today as well. We discussed that she will come to see in
about 1 week after discharge for a follow-up and will be placed on antibiotics to take at home. I discussed what happened during surgery and that cultures were taken which are still pending right now and will look to Infectious Disease for
antibiotic recommendation. We discussed the hypoesthesia that she is experiencing on the left face and we will continue to monitor over time and see how it improves but as we discussed it may or may not resolve which she understands and is not
concerned. We discussed the hypoesthesia of the left lower lip and chin would be consistent with the infection/abscess and could have spread over the left cheek area but I am unclear the exact cause of the left cheek hypoesthesia. She understands.
She is ok to eat food today.
1. Patient is cleared for discharge from an OMFS standpoint, she was instructed to follow-up in 1 week after discharge in my office and knows to call my office with any questions or concerns
2. Continue antibiotics per ID recommendations and discharge antibiotics for home per ID recommendations
3. Patient is cleared to start diet - advance diet as tolerated per patient
4. Continue pain medications prn
Subjective Data
-
88 year old female post op day #1 status post extraction of tooth #17 and incision and drainage of left mandible/buccal space abscess with debridement and curettage. Patient reports she is doing well this morning with minimal pain or discomfort.
Swelling still present but she understands it will take a long time to resolve. Patient reports the numbness or hypoesthesia of her left face is still present over the left cheek, upper lip, lower lip, cheek and chin but is resolved over the left
forehead. She reports it feels like a 'crawling sensation' over the area which has been present for several days now prior to coming to the hospital. She is ready to try eating some food.
Objective Data
-
Vitals, I&O and Lab Results:
Vital Signs
Temp Pulse Resp BP Pulse Ox
36.6 C 93 20 134/74 95
02/10/24 06:33 02/10/24 06:33 02/10/24 06:33 02/10/24 06:33 02/10/24 06:33
Intake and Output
02/09/24 02/10/24 02/11/24
06:59 06:59 06:59
Intake Total 240 / 240 440 / 440
Balance 240 / 240 440 / 440
Intake:
Oral fluids 240 / 240 420 / 420
IV fluids (Total)
NSS 20
Other:
Number of approximated MODERATE 2 1 1
amounts of urine
Number of approximated LARGE 4
amounts of urine
Lab Data
02/10/24 08:11
Plt Count 395 10^3/uL (130-400) 02/10/24 08:11
Microbiology
02/09/24 20:42 Anaerobic Culture - Pending
Abscess
02/09/24 20:42 Wound Culture - Pending
Abscess Gram Stain - Pending
WBC count is 5.2 this morning, improving and trending down appropriately.
Physical Exam
-
Extraoral examination: left facial edema over the buccal area with minimal tenderness to palpation and no erythema. CN VII intact bilaterally with normal movements of both left and right face without any deficits which is a House Brackmann grade 1
and within normal facial function in all areas. CN V1,V2,V3 right is 10/10 sensation on brush, pressure and pin prick. CN V1 left 10/10 sensation on brush, pressure and pin prick. CN V2,V3 left is 5/10 sensation on brush, pressure and pin prick and
unchanged from yesterday. TMJs function normal without any popping, clicking or crepitus. Normal SHMUEL without trismus.
Intraoral examination: left posterior mandibular edema with slight erythema between areas #17-21 along the buccal vestibule with slight tenderness to palpation but improved from yesterday. Extraction site #17 healing well, no exposed bone along left
buccal or lingual mandible. No purulent discharge along left mandible. No left lingual mandibular edema or erythema or tenderness to palpation. Floor of the mouth is soft without edema or elevation, uvula midline without deviation. No tongue
elevation.
Data Reviewed
-
Labs: Image personally reviewed and interpreted, Report reviewed by me and Discussed with Patient
[2024-02-10] MEDS: NORVASC 10 MG PO (08:42)
[2024-02-10] MEDS: DETROL 1 MG PO (08:42)
[2024-02-10] MEDS: HEPARIN 5000 UNITS SC (08:44)
[2024-02-10] MEDS: PROTONIX 40 MG PO (09:05)
[2024-02-10 09:47] LABS: Blood Urea Nitrogen 20 mg/dl (7-17); Calcium 9.3 mg/dl (8.4-10.2); Carbon Dioxide 26 mmol/L (22-30); Chloride 99 mmol/L (98-107); Estimated Creatinine Clearance 42 ml/min; Glucose 159 mg/dl (70-99); Potassium 3.7 mmol/L (3.5-5.1); Sodium 140 mmol/L (135-145); eGFR > 60.00
--- NOTE | 2024-02-10 10:28 | W.PN.ID1 ---
Date of Service
Date of Service: February 10, 2024
Today's Communication
Continue abx. See below.
Assessment / Plan
Left mandibular subperiosteal abscess
- s/p additional tooth extraction and abscess I&D
Recent dental extraction
Leukocytosis
Hx HTN
Recommendations:
For potential D/C today. At D/C, transiton to oral augmentin 875 mg BID for an additional 10 days.
Pt will need F/U with dentist after D/C.
Chief Complaint
-: Other (dental infection)
Subjective / Review of Systems
S/p tooth extraction and I&D of abscess. Feeling improved. Still with some tenderness.
Review of Systems: No Fever and No Chills
Vital Signs / Physical Exam
Vital Signs
Vital Signs
Temp Pulse Resp BP Pulse Ox
97.8 F 88 20 132/72 95
02/10/24 06:33 02/10/24 08:42 02/10/24 06:33 02/10/24 08:42 02/10/24 06:33
Physical Exam
Constitutional: No Acute Distress, Comfortable and Non-toxic
Head: Other (left mandibular swelling and tenderness, without change from yesterday)
Eyes: No Conjunctival Hemorrhage and Sclera Anicteric
Cardiovascular: S1/S2; Negative S3/S4
Pulmonary: Non Labored
Neurological: Awake and Alert
Psychological: Calm
Objective Data
Lab Data
Lab Results
02/10/24 08:11
02/10/24 08:11
Estimated Creat Clear 42 ml/min 02/10/24 08:11
Total Bilirubin 1.3 mg/dl (0.2-1.3) 02/08/24 12:13
AST 23 U/L (14-36) 02/08/24 12:13
ALT 16 U/L (0-35) 02/08/24 12:13
Alkaline Phosphatase 97 U/L (38-126) 02/08/24 12:13
Most recent labs reviewed.
Micro Results:
02/09/24 20:42 Wound Culture - Pending
Abscess Gram Stain - Preliminary
02/09/24 20:42 Anaerobic Culture - Pending
Abscess
Imaging:
CT facial bones with IV contrast: There is extensive soft tissue swelling and stranding along the left maxillary/mandibular soft tissue involving the manager construction and buccal spaces. There is a 1.5 x 0.6 x 1.4 cm hypodense collection along the
mandibular ramus. The left masseter appears enlarged and hypodense. There is mild left-sided cervical adenopathy, likely reactive in nature. No acute fractures are noted. Please see full dictation for additional detail. Film personally viewed.
--- NOTE | 2024-02-10 11:03 | W.DCSUMMARY ---
Addendum entered and electronically signed by Fabio Cobb MD 02/10/24 13:23:
Read, reviewed, and agree. See same day progress note for additional details.
Original Note:
Discharge Summary
Discharge Data
Date of Admission: 02/08/24
Date of Discharge: 02/10/24
-
Pending Results: Yes
Hospital Course
Patient is an 88-year-old woman with past medical history of Non-Hodgkin's lymphoma, essential hypertension, pelvic floor muscle weakness, and GERD who underwent [id number] dental extraction of tooth #18 on 01/14/24. She started developing
left lower facial swelling post-procedure and went to urgent care for evaluation. X-rays were obtained at that time but did not show any abnormality. She was prescribed Flagyl to treat possible infection . However, left-sided facial swelling
progressed and she started to notice left facial numbness and presented to the ED. Initial labs in ED showed leukocytosis. Hemodynamics were stable except for mild tachycardia. No fevers were noted. CT of facial bones revealed:
CT Facial Bones W/ Iv Contrast (02/07):
There is a 1.5 x 0.6 x 1.4 cm subperiosteal abscess along the left mandibular ramus with associated soft tissue stranding and swelling involving the left bacteriology technician and buccal spaces. There is mild left cervical lymphadenopathy which is likely
reactive.
Patient was started on Unasyn in the ED and was admitted for further evaluation of subperiosteal abscess. Otology was consulted; they suggested oral surgery consult for drainage procedure. Oral surgery visited patient and made her n.p.o. immediately
for extraction of tooth #17 with incision and drainage of left mandibular abscess later in the day.
Patient underwent extraction of tooth #17, along with incision and drainage of left mandible/buccal space abscess with debridement and curettage on 02/08 at 20:20 and returned to her room at 21:30 without any post-op complications. Cultures from
abscess including anaerobic cultures were obtained and sent. ID was consulted and visited patient daily. ID suggested switching from Unasyn to Augmentin (# 10 days) upon discharge. Patient's diet was advanced this morning and she could tolerate it
well without any nausea or vomiting.
Today, patient is medically stable for discharge to home. She has been given instructions regarding her new medication. Prescriptions have been sent to patient's pharmacy. She has been advised to follow-up with Dr. Chicas and PCP after
discharge.
Discharge Plan
-
Patient Disposition: Home (Routine Discharge)
Discharge Diagnosis/Procedures: Left buccal space abscess
Condition: Good
Diet: As tolerated, Low Fat and Low Cholesterol
Activity: As tolerated
Driving Restrictions: As prior to admission
Bathing Restrictions: None
Instructions: Dental abscess
Referrals:
Aidan Miller, DO [Family Provider] -
Joanne Chicas, LEO [Active] - (Please call for 1 week follow-up in my office [phone])
Prescriptions:
New
amoxicillin-pot clavulanate 875-125 mg tablet
1 tab PO BID 10 Days Qty: 20 0RF
Continued
tolterodine 1 mg Tablet
1 mg PO BID
acetaminophen [Tylenol Extra Strength] 500 mg Tablet
500 mg PO Q6HPRN PRN (Reason: mild pain)
amlodipine 10 mg Tablet
10 mg PO DAILY
naproxen sodium [Aleve] 220 mg Tablet
220 mg PO DAILY
omeprazole 20 mg Capsule,Delayed Release(Dr/Ec)
20 mg PO DAILY
cholecalciferol (vitamin D3) [Vitamin D3] 25 mcg (1,000 unit) Tablet
25 mcg PO DAILY
Discontinued
metronidazole 500 mg Tablet
500 mg PO BID
Patient Comments:
02/08/24: to take for 10 days, started on 02/07/24.
Discharge Orders:
Discharge Patient (As Directed); Ordered 02/10/24
Ordered By: Yolanda Hand
Discharge Date and Time
Print Language: BELIZEAN
--- NOTE | 2024-02-10 11:10 | PTOTSP ---
Dysphagia Evaluation
Oral/pharyngeal swallowing is WFL. No signs of aspiration.
Recommend:
1. Regular, Thin Liquids
2. Strategies: pick soft/moist foods for comfort, chew on right side of mouth, liquid wash to assist with oral clearance
3. Medications as best tolerated
4. No further dysphagia therapy warranted at this time.
--- NOTE | 2024-02-10 11:31 | CM ---
CM met with Alexia at bedside to complete IA. Alexia was admitted due to dental abscess.
Alexia lives with her SO in a one level home with 1 entry step. They are both ([place]) amb and adls, drive locally. Groceries are delivered to the home.
Alexia denies need for services at discharge. She has an appointment to follow up with the oral surgeon at discharge.
Plan: Discharge to home with no needs. F/U with oral surgeon as an outpatient.
[2024-02-10 11:45] VITALS: BP 120/71; BP 139/69; PULSE 107
== END 2024-02-10 12:32 | disposition home or self-care (01) | DRG 854 ==
LOC: 4 EAST ACU 15:39
PROVIDERS: Registered Nurse; Student in an Organized Health Care Education/Training Program; ADMITTING PHYSICIAN Internal Medicine; ATTENDING PHYSICIAN Internal Medicine; CONSULT PHYSICIAN Dentist Oral and Maxillofacial Surgery; EMERGENCY PHYSICIAN Emergency Medicine; FAMILY PHYSICIAN Family Medicine; OTHER PHYSICIAN Internal Medicine Infectious Disease; OTHER PHYSICIAN Otolaryngology Facial Plastic Surgery
PROC: 0C940ZZ Drainage of Buccal Mucosa, Open Approach (ICD-10-PCS; 2024-02-09)
PROC: 0CDXXZ0 Extraction of Lower Tooth, Single, External Approach (ICD-10-PCS; 2024-02-09)
DX: A41.9 Sepsis, unspecified organism (principal); C85.90 Non-Hodgkin lymphoma, unspecified, unspecified site; I10 Essential (primary) hypertension; R13.10 Dysphagia, unspecified; M27.2 Inflammatory conditions of jaws; R59.0 Localized enlarged lymph nodes; M62.81 Muscle weakness (generalized); R20.1 Hypoesthesia of skin; K04.7 Periapical abscess without sinus; I65.23 Occlusion and stenosis of bilateral carotid arteries; K21.9 Gastro-esophageal reflux disease without esophagitis; Z88.1 Allergy status to other antibiotic agents; Z88.2 Allergy status to sulfonamides; Z88.8 Allergy status to other drugs, medicaments and biological substances
CPT/HCPCS: 70355; 70487; 80048; 80053; 82962; 85025; 85027; 87070; 87075; 87147; 87205; 92610; 96361; 96365; 97161; 97166; 99285; Q9967

== ENCOUNTER → 2024-04-26 10:59 | Outpatient (REF) | payer MEDICARE, BC, SELFPAY ==
[2024-04-26 16:03] LABS: % Basophils 0.6 % (0-2); % Eosinophils 2.8 % (0-6); % Immature Granulocytes 0.1 % (0-0.5); % Lymphocytes 40.8 % (20.5-51.1); % Monocytes 5.8 % (1.7-9.3); % Neutrophils 49.9 % (42.2-75.2); Absolute Eosinophils 0.2 10^3/uL (0-0.7); Absolute Lymphocytes 2.7 10^3/uL (1.2-3.4); Absolute Monocytes 0.4 10^3/uL (0.1-0.6); Absolute Neutrophils 3.3 10^3/uL (1.4-6.5); Mean Corp Hgb Conc. 33.3 g/dL (33.0-37.0); Mean Corpuscular Hgb 28.8 pg (27.0-31.0); Mean Corpuscular Volume 86.5 fL (81.0-99.0); Mean Platelet Volume 10.8 fL (7.4-10.4); Nucleated Red Blood Cells % 0 %; Platelet Count 268 10^3/uL (130-400); Red Blood Cell Count 4.51 10^6/uL (4.20-5.40); Red Cell Dist. Width 14.8 % (11.5-14.5); White Blood Cell Count 6.7 10^3/uL (4.8-10.8)
[2024-04-26 16:11] LABS: Iron 100 ug/dl (37-170); LDH 217 U/L (120-246)
[2024-04-26 16:20] LABS: Percent Saturation 32 % (20-50); Total Iron Binding Capacity 311 ug/dl (265-497)
[2024-04-26 16:45] LABS: Ferritin 41.1 ng/ml (11.1-264.0)
== END ==
LOC: HWLAB 10:59
PROVIDERS: ATTENDING PHYSICIAN Internal Medicine Hematology & Oncology; FAMILY PHYSICIAN Family Medicine
DX: C85.80 Other specified types of non-Hodgkin lymphoma, unspecified site (principal)
CPT/HCPCS: 36415; 82728; 83540; 83550; 83615; 85025